=== PATIENT | male | born 1990 | race African-American/Black ===

== ENCOUNTER 2017-09-23 16:32 | Emergency (ER) | payer MEDICAID ==
[~2017-09-23] VITALS: Ht 185.4 cm; Wt 82.0 kg
[2017-09-23] MEDS ORDERED: TETRACAINE 0.5% OPHTH DROPS 4ML OP ONE (17:45)
[2017-09-23] MEDS ORDERED: FLUORESCEIN SODIUM 1MG/STRIP OP ONE (17:45)
[2017-09-23] MEDS ORDERED: TETANUS, DIPHTHERIA, PERTUSSIS VAC/PF 0.5ML (>7YR OLD) IM ONE (17:45)
[2017-09-23] MEDS ORDERED: CEFAZOLIN 1000MG PREMIX 50 ML IV ONE (19:15)
[2017-09-23] MEDS ORDERED: HYDROCODONE/ACETAMINOPHEN 5/325MG TABLET PO ONE (22:00)
[2017-09-23 23:09] VITALS: BP 133/94
== END 2017-09-23 23:35 | disposition short-term general hospital (02) ==
LOC: ER 16:32
DX: S02.32XA Fracture of orbital floor, left side, initial encounter for closed fracture (principal); S02.2XXA Fracture of nasal bones, initial encounter for closed fracture; S02.40FA Zygomatic fracture, left side, initial encounter for closed fracture; Y04.0XXA Assault by unarmed brawl or fight, initial encounter; Y93.89 Activity, other specified; Y92.89 Other specified places as the place of occurrence of the external cause; Y99.8 Other external cause status
CPT/HCPCS: 70450; 70486; 90471; 90715; 96365; 99285; J0690

== ENCOUNTER 2017-10-02 13:36 | Emergency (ER) | payer MEDICAID ==
[~2017-10-02] VITALS: Ht 177.8 cm; Wt 70.0 kg
[2017-10-02 15:12] VITALS: BP 115/72
== END 2017-10-02 15:16 | disposition home or self-care (01) ==
LOC: ER 14:49
DX: S02.40FA Zygomatic fracture, left side, initial encounter for closed fracture (principal); S02.2XXA Fracture of nasal bones, initial encounter for closed fracture; S02.32XA Fracture of orbital floor, left side, initial encounter for closed fracture; W22.8XXA Striking against or struck by other objects, initial encounter; Y93.64 Activity, baseball; Y92.89 Other specified places as the place of occurrence of the external cause; Y99.8 Other external cause status
CPT/HCPCS: 99281

== ENCOUNTER 2017-10-15 09:13 | Emergency (ER) | payer MEDICAID ==
[~2017-10-15] VITALS: Ht 182.9 cm; Wt 81.0 kg
[2017-10-15 09:14] VITALS: BP 138/66
== END 2017-10-15 11:41 | disposition home or self-care (01) ==
LOC: ER 09:13
DX: S02.32XD Fracture of orbital floor, left side, subsequent encounter for fracture with routine healing (principal); X58.XXXD Exposure to other specified factors, subsequent encounter
CPT/HCPCS: 99282